=== PATIENT | female | born 1985 | race Caucasian/White ===

== ENCOUNTER 2016-12-20 15:46 | Emergency (ER) | payer OTHER ==
[~2016-12-20] VITALS: Ht 157.5 cm; Wt 55.3 kg
[~2016-12-20 15:46] MED LIST: LANTUS100 UNIT/M; NOVOLOG100 UNIT/1; VYVANSE30 MG PO
[2016-12-20 16:00] LABS: URINE BLOOD TRACE (Negative); URINE COLOR YELLOW; URINE GLUCOSE-RANDOM* 3+ (Negative); URINE KETONES 1+ (Negative); URINE NITRITE NEGATIVE (Negative); URINE PROTEIN (DIPSTICK) 1+ (Negative); URINE SPECIFIC GRAVITY 1.025 (1.003-1.035)
[2016-12-20 16:04] LABS: URINE BILIRUBIN NEGATIVE (Negative)
[2016-12-20 16:06] LABS: SQUAMOUS 0-3 Few /LPF (0-3); URINE RBC 0-2 Rare /HPF (0-2)
[2016-12-20 16:07] LABS: CASTS None Seen /LPF (None Seen); CRYSTALS None Seen /LPF (None Seen); URINE WBC None Seen /HPF (0-5)
[2016-12-20 16:40] LABS: HEMATOCRIT 43.9 % (37.0-47.0); HEMOGLOBIN 15.2 gm/dL (12.0-15.0); MANUAL DIFF YES; MCH 31.9 pg (26.0-34.0); MCHC 34.5 g/dL (28.0-37.0); MCV 92.4 fL (80.0-100.0); PLATELET COUNT 304 thou/uL (150-400); RBC 4.76 mil/uL (4.20-5.00); RDW 12.4 % (10.5-14.5); WBC 9.6 thou/uL (4.0-11.0)
[2016-12-20 16:50] LABS: CALCIUM 9.2 mg/dL (8.5-10.1); CREATININE 0.6 mg/dL (0.6-1.0); POTASSIUM 3.9 mmol/L (3.5-5.1)
[2016-12-20 16:54] LABS: ALBUMIN 3.8 g/dL (3.4-5.0); TOTAL BILIRUBIN 0.9 mg/dL (<0.1-1.0); TOTAL PROTEIN 7.9 g/dL (6.4-8.2)
[2016-12-20 16:56] LABS: ABG SAMPLE TYPE VENOUS; BE(vivo) 2.4 mmol/L (-2 to +3); HCO3 28.6 mmol/L (22.0-26.0); LACTATE 1.26 mmol/L (0.5-2.0); O2(CT) 9.2 mL/dL (15.0-23.0); O2Hb VENOUS 41.9 (65.0-85.0); PO2 VENOUS 26.3 mmHg (35.0-45.0); sO2 VENOUS 46.3 % (65.0-85.0); tCO2 30.1 mmol/L (24.0-30.0)
[2016-12-20 16:57] LABS: STICK SITE LINE
[2016-12-20 17:03] LABS: ABSOLUTE NEUTROPHILS 8.4 thou/uL (1.4-8.2); TOTAL CELL COUNT 100
[2016-12-20] MEDS ORDERED: ONDANSETRON HCL4 M2 PO (19:19)
== END 2016-12-20 19:25 | disposition home or self-care (01) ==
LOC: ER 15:46
PROVIDERS: Physician Assistant
DX: R11.2 Nausea with vomiting, unspecified (principal); E11.65 Type 2 diabetes mellitus with hyperglycemia; R10.11 Right upper quadrant pain; R10.31 Right lower quadrant pain; K90.0 Celiac disease; Z88.1 Allergy status to other antibiotic agents; Z88.6 Allergy status to analgesic agent; Z88.8 Allergy status to other drugs, medicaments and biological substances; Z79.4 Long term (current) use of insulin